=== PATIENT | female | born 1980 | race Caucasian/White ===

== ENCOUNTER → 2019-08-03 | Outpatient (CLI) | payer BC ==
[~2019-08-03] MED LIST: CEPH-350 PO; SULF1TAB24 PO
== END | disposition home or self-care (01) ==
LOC: NPLAB 17:35
PROVIDERS: ATTEND Nurse Practitioner Family
DX: N39.0 Urinary tract infection, site not specified (principal)
CPT/HCPCS: 87086

== ENCOUNTER 2019-12-18 23:08 | Emergency (ER) | payer BC ==
[~2019-12-18] VITALS: Ht 160 cm; Wt 81.6 kg
[2019-12-18] MEDS ORDERED: TORADOL IM STA (23:18)
[2019-12-18 23:22] VITALS: BP 132/83
--- NOTE | 2019-12-18 23:23 | ER.PDOC ---
General Chief Complaint: Requesting Medical Care Stated Complaint: KNEE INJURY Time seen by MD: 23:21 Source: patient Exam Limitations: no limitations History of Present Illness Initial Comments Knee pain S/P twisting it when she stepped into a pothole. Onset: just prior to arrival Where: home Context: twist Severity: moderate Associated Symptoms: unable to bear weight, popping sensation Allergies: Coded Allergies: meperidine (Unverified Allergy, Unknown, 05/26/14) nitrofurantoin (Unverified Allergy, Unknown, 05/26/14) Home Meds Reported Medications Cephalexin (KEFLEX) 500 Mg Capsule, 500 MG PO TID, CAPSULE 05/27/14 Sulfamethoxazole/Trimethoprim (BACTRIM DS TABLET) 1 Each Tablet, 1 EACH PO BID, TABLET 05/27/14 Past Medical History Surgical History: tubal Review of Systems Constitutional: no symptoms reported Respiratory: no symptoms reported Cardiovascular: no symptoms reported Gastrointestinal: no symptoms reported Musculoskeletal: see HPI All Other Systems: Reviewed and Negative Physical Exam General Appearance: Alert, No Apparent Distress Foot: nml inspection, non-tender, nml color/temp, skin intact Ankle: nml inspection, non-tender, nml ROM, no joint swelling, skin intact Knee: tenderness (left), swelling, limited ROM by pain Thigh/Hip: nml inspection Gait: unable to bear weight Neuro/Vasc/Tendon: sensation nml, motor nml, no vascular compromise, tendon function nml Skin: warm/dry Head/ENT: nml inspection, pharynx nml Neck/Back: nml inspection, non-tender Abdomen: non-tender, pelvis stable Results/Orders Results/Orders Orders - STEPHANIE BARKER MD Xr Knee Lt 2v (12/18/19 23:18) Ketorolac Tromethamine (Toradol) (12/18/19 23:18) Ketorolac Tromethamine (Toradol) (12/18/19 23:27) Vital Signs Date Time Temp Pulse Resp B/P (MAP) Pulse Ox O2 Delivery O2 Flow Rate FiO2 12/18/19 23:27 97.7 105 22 132/83 (99) 100 12/18/19 23:27 97.7 105 22 132/83 (99) 100 12/18/19 23:22 97.7 105 22 12/18/19 23:22 97.7 105 22 100 Administered Medications Medications (Trade) Dose Ordered Sig/Tory Route PRN Reason Start Time Stop Time Status Last Admin Dose Admin Ketorolac Tromethamine (Toradol) 60 mg STAT STAT IM 12/18/19 23:18 12/18/19 23:20 DC 12/18/19 23:36 60 MG Progress Progress X rays left knee: Acute mildly displaced intra-articular fracture of the medial tibial plateau extends into the medial tibial metaphysis. Mildly displaced intra-articular fracture of the fibular head. Spoke with Dr. Harden and patient will follow up with him on 12/20/19 at 1pm Departure Time of Disposition: 00:06 Disposition: 01 HOME, SELF-CARE Impression: Primary Impression: Tibia fracture Additional Impression: Fibula fracture Condition: Stable Referrals: YARELY HARTLEY (PCP) PRIMARY CARE PROVIDER Additional Instructions: Tylenol #3 Ibuprofen Ice 3 times a day for 3 days F/U with Dr. Harden tomorrow at 1pm Duration or Time Spent with Pa: 30 mins Problem Qualifiers Primary Impression: Tibia fracture Encounter type: initial encounter Tibia location: proximal Fracture type: closed Fracture morphology: unspecified fracture morphology Laterality: left Qualified Codes: S82.102A - Unspecified fracture of upper end of left tibia, initial encounter for closed fracture Additional Impression: Fibula fracture Encounter type: initial encounter Fibula location: proximal Fracture type: closed Fracture morphology: unspecified fracture morphology Laterality: left Qualified Codes: S82.832A - Other fracture of upper and lower end of left fibula, initial encounter for closed fracture STEPHANIE BARKER MD Dec 18, 2019 23:23
[2019-12-18 23:27] VITALS: BP 132/83
[2019-12-18] MEDS ORDERED: TORADOL ONE (23:27)
--- NOTE | 2019-12-18 23:30 | NUR ---
ABHINAV SCHAFFER IN ROOM WITH PORTABLE AT THIS TIME.
--- NOTE | 2019-12-18 23:45 | DIREP ---
PROCEDURE:XRAY KNEE 2 VWS-LT COMPARISON:None. INDICATIONS:injury, FALL, LEFT KNEE PAIN FINDINGS: BONES:AP, lateral and oblique images of the left knee are provided. Mildly displaced acute transverse intra-articular fracture at the fibular head. There is an acute vertical fracture through the medial tibial plateau with 4 mm fracture displacement. Fracture extends into the tibial metaphysis and originates near the tibial spine and center of the medial tibial plateau. JOINTS:Small joint effusion. SOFT TISSUES:Normal. OTHER:No additional findings. CONCLUSION:Acute mildly displaced intra-articular fracture of the medial tibial plateau extends into the medial tibial metaphysis. Mildly displaced intra-articular fracture of the fibular head. Dictated by: Navjot Canchola M.D. on 12/18/2019 at 11:43 PM
--- NOTE | 2019-12-18 23:52 | NUR ---
KORI COUGHLIN MBA ON PHONE WITH DR. SHEIKH AT THIS TIME.
== END 2019-12-19 00:28 | disposition home or self-care (01) ==
LOC: ER 23:08
DX: S82.832A Other fracture of upper and lower end of left fibula, initial encounter for closed fracture (principal); S82.102A Unspecified fracture of upper end of left tibia, initial encounter for closed fracture; Z79.1 Long term (current) use of non-steroidal anti-inflammatories (NSAID); Z88.1 Allergy status to other antibiotic agents; Z88.5 Allergy status to narcotic agent; X50.9XXA Other and unspecified overexertion or strenuous movements or postures, initial encounter; Y93.89 Activity, other specified; Y92.098 Other place in other non-institutional residence as the place of occurrence of the external cause; Y99.8 Other external cause status
CPT/HCPCS: 29505; 73560; 96372; 99283; J1885; 29105

== ENCOUNTER → 2019-12-22 | Outpatient (CLI) | payer BC ==
[~2019-12-22] MED LIST changes: +ACET-685 PO; +CYCL10TA2 PO; +CYCL5TAB PO; +MULT-235 PO
--- NOTE | 2019-12-22 23:53 | DIREP ---
PROCEDURE:CT LOWER EXTREMITY-LT W/O COMPARISON:[facility], CR, XRAY KNEE 1-2 VWS-LT, 12/18/2019, 11:05 PM. INDICATIONS:LEFT TIBIA FX TECHNIQUE:Axial sections through the left knee were performed with sagittal and coronal reconstructions from source images. No contrast was administered. FINDINGS: BONES:Transverse nondisplaced intra-articular fracture of the tip of the fibular head. Vertical sagittal oblique fracture medial tibial plateau with up to mm fracture distraction is oriented anterior to posterior, lateral to medial. The anterior portion of the medial tibial plateau fracture margins are comminuted. Small fracture lines extend in the coronal plane across the tibial spines into the anterior aspect of the lateral tibial plateau. Small osteophytes at the mid femoral condyle. JOINTS:Large lipohemarthrosis. SOFT TISSUES:Anterior subcutaneous edema. OTHER:Negative. CONCLUSION: 1. Comminuted intra-articular vertical fracture of the medial tibial plateau extends into the anterior margin of the lateral tibial plateau. 2. Fibular head fracture. Dictated by: Navjot Canchola M.D. on 12/22/2019 at 11:47 PM
== END | disposition home or self-care (01) ==
LOC: CT 11:10
PROVIDERS: ATTEND Orthopaedic Surgery
DX: S82.252A Displaced comminuted fracture of shaft of left tibia, initial encounter for closed fracture (principal); S82.832A Other fracture of upper and lower end of left fibula, initial encounter for closed fracture; X58.XXXA Exposure to other specified factors, initial encounter; Y93.89 Activity, other specified; Y92.89 Other specified places as the place of occurrence of the external cause; Y99.8 Other external cause status
CPT/HCPCS: 73700

== ENCOUNTER → 2019-12-24 | Day surgery (SDC) | payer BC ==
--- NOTE | 2019-12-23 14:34 | PCM.EKG ---
[facility] Test Date: 2019-12-23 Test Time: 14:18:29 Pat Name: APPLE WARNER Department: Room: Gender: F [employer] Judge: [place] : [id number] Requested By: JUAN CARLOS SHEIKH Order Number: [id number] Reading MD: Measurements Intervals [place] Rate: 78 P: 74 NM: 161 QRS: 66 QRSD: 92 T: 45 QT: 368 QTc: 420 Interpretive Statements Sinus rhythm No previous ECG available for comparison Please click the below link to view image of tracing.
[2019-12-23 14:49] LABS: BASOPHIL % 0.6 % (0.0-0.2); EOSINOPHIL # 0.3 10^3/uL (0.0-0.2); LYMPHOCYTES # 1.61 10^3/uL1 (1.0-4.8); LYMPHOCYTES % 23.9 % (24.0-44.0); MEAN CORP HGB 28.1 pg (26-34); MONOCYTES # 0.6 10^3/uL (0.3-0.8); MONOCYTES % 9.5 % (5.0-12.0); NEUTROPHIL # 4.2 10^3/uL (1.8-7.7); NEUTROPHILS % 61.7 % (41.0-85.0); PLATELET COUNT 246 10^3/uL (150-400); RED CELL DISTRIBUTION WIDTH 15.2 % (11.5-14.5)
[2019-12-23 15:04] LABS: CALCIUM 8.3 mg/dL (8.4-10.5); CARBON DIOXIDE 28.2 mmol/L (20.0-32)
[~2019-12-24] VITALS: Ht 160 cm; Wt 83.5 kg
[2019-12-24] VITALS (21 sets, daily range): BP systolic 112–171; BP diastolic 70–107
[~2019-12-24] MED LIST changes: +ANCEF ONE; +DECADRON ONE; +DILAUDID ONE; +DIPRIVAN IV ONE; +LACTATED RINGERS 1,000 ML IV SCH; +LACTATED RINGERS 1,000 ML ONE; +LIDOCAINE 2% VIAL ONE; +NEOSTIGMINE ONE; +NORCO 7.5MG PO ONE; +NS 100ML 100 ML IV ONE; +PRECEDEX IV ONE; +REGLAN IV PRN; +SENSORCAINE 0.5% VIAL ONE; +SODIUM CHLORIDE IRR BOTTLE IR ONE; +SUBLIMAZE ONE; +VERSED ONE; +ZEMURON IV ONE; +ZOFRAN ONE
[2019-12-24] MEDS: DILAUDID IV PRN ×2 (12:57→13:15)
--- NOTE | 2019-12-24 12:59 | PRM.OPH ---
OPERATIVE REPORT OPERATIVE REPORT DATE OF SURGERY: 12/24/2019 PREOPERATIVE DIAGNOSIS: Fracture left medial tibial plateau POSTOPERATIVE DIAGNOSIS: Same OPERATIVE PROCEDURE: Open reduction internal fixation left medial tibial plateau using Synthes medial locking plate 4-hole SURGEON: Lito Harden MD ASSITANT: None ANESTHESIA: General endotracheal TOURNIQUET TIME: 45 minutes at 300 mmHg DRAINS: None BLOOD LOSS: 20 mL. DESCRIPTION OF INDICATIONS: 39-year-old female with a displaced medial tibial plateau fracture after falling at home approximately 5 to 7 days ago. DESCRIPTION OF PROCEDURE: Patient was placed on the operating table in the supine position. A general endotracheal anesthetic was induced without difficu lty. Well-padded tourniquet was placed around the left thigh. The patient had the left lower extremity sterilely prepped and draped. The leg was exsanguinated with an Esmarch and the tourniquet was inflated to 300 mmHg. Patient had a anteromedial incision made about the proximal tibia. The incision was taken through the skin and subcutaneous tissue down to the proximal medial tibia. The fracture was exposed anteriorly and posteriorly with blunt dissection. We used a 4-hole Synthes medial tibial buttress plate was placed against a proximal tibia. The plate was initially held into position with a guidewire in the AP and lateral C-arm views showed satisfactory positioning of the hardware. We initially placed a 5.0 compression screw through the middle hole of the plate. A second screw was placed distally down the shaft which was a 4.5 cortical screw. At that point AP and lateral C-arm views showed satisfactory reduction of the fracture and satisfactory hardware position. We then placed 2 locking screws proximally. An oblique locking screw was placed distally and then in the most distal hole a 4.5 cortical screw was placed. The final AP and lateral C-arm views showed satisfactory hardware position and satisfactory reduction of the fracture. The wounds were then copiously irrigated. The subcu was closed with a 2-0 barbed Monocryl for the deep layer and a 3-0 barbed Monocryl for the superficial layer. The skin was closed with surinder. A compressive dressing was applied. The tourniquet was released. The patient was extubated in the operating room and sent to recovery in stable condition. LITO HARDEN MD Dec 24, 2019 12:59
--- NOTE | 2019-12-24 15:00 | DIREP ---
PROCEDURE:XRAY KNEE 2 VWS-LT COMPARISON:[facility], CR, XRAY KNEE 1-2 VWS-LT, 12/18/2019, 11:05 PM. INDICATIONS:POST OP ORIF OF TIBIA PLATEAU FINDINGS: BONES:Interval medial plate and screw fixation of the previously reported medial tibial plateau fracture. Alignment is essentially unchanged from the previous study. There is minimal diastases at the articular surface without significant step-off. Associated minimally displaced fracture of the proximal fibular head. JOINTS:Mild degenerative changes of medial femorotibial compartment with joint space narrowing and subtle osteophyte formation. This is similar to the previous study. SOFT TISSUES:Soft tissue edema and emphysema about the knee would be consistent with recent postoperative state, as indicated by overlying skin surinder. CONCLUSION: 1. Post operative changes of interval open reduction and internal fixation of previously noted medial tibial plateau fracture. Minimally displaced fracture of the proximal fibular head is similar to the previous study. 2. Mild degenerative changes of the medial femoral tibial compartment is similar to the previous study. Dictated by: Yogesh Noriega M.D. On 12/24/2019 at 02:56 PM
== END | disposition home or self-care (01) | DRG 563 ==
LOC: SDC 10:20
PROVIDERS: ATTEND Orthopaedic Surgery
DX: S82.132A Displaced fracture of medial condyle of left tibia, initial encounter for closed fracture (principal); W19.XXXA Unspecified fall, initial encounter; Y93.89 Activity, other specified; Y92.098 Other place in other non-institutional residence as the place of occurrence of the external cause; Y99.8 Other external cause status; Z88.8 Allergy status to other drugs, medicaments and biological substances; Z79.899 Other long term (current) drug therapy; Z82.5 Family history of asthma and other chronic lower respiratory diseases; Z82.49 Family history of ischemic heart disease and other diseases of the circulatory system
CPT/HCPCS: 27535; 36415; 73560; 80053; 84702; 85025; 93005; 97760; A4217; A4649; A6197; C1713 ×6; J0690; J1100 ×2; J1170; J2001 ×2; J2250 ×2; J2405; J2710; J3010 ×2; J3490 ×3; J7050; J7120 ×2; 76000; L1832

== ENCOUNTER → 2020-09-14 | Outpatient (CLI) | payer BC ==
[~2020-09-14] MED LIST changes: -ANCEF ONE; -DECADRON ONE; -DILAUDID ONE; -DIPRIVAN IV ONE; -LACTATED RINGERS 1,000 ML IV SCH; -LACTATED RINGERS 1,000 ML ONE; -LIDOCAINE 2% VIAL ONE; -NEOSTIGMINE ONE; -NORCO 7.5MG PO ONE; -NS 100ML 100 ML IV ONE; -PRECEDEX IV ONE; -REGLAN IV PRN; -SENSORCAINE 0.5% VIAL ONE; -SODIUM CHLORIDE IRR BOTTLE IR ONE; -SUBLIMAZE ONE; -VERSED ONE; -ZEMURON IV ONE; -ZOFRAN ONE
== END | disposition home or self-care (01) ==
LOC: NPLAB 17:52
PROVIDERS: ATTEND Nurse Practitioner Family
DX: Z03.818 Encounter for observation for suspected exposure to other biological agents ruled out (principal)
CPT/HCPCS: U0003

== ENCOUNTER → 2021-09-11 | Outpatient (CLI) | payer BC ==
[~2021-09-11] MED LIST changes: +CYCL10TA19 PO; -CYCL10TA2 PO
== END | disposition home or self-care (01) ==
LOC: NPLAB 09:54
PROVIDERS: ATTEND Nurse Practitioner Family
DX: Z11.52 Encounter for screening for COVID-19 (principal); Z20.822 Contact with and (suspected) exposure to COVID-19
CPT/HCPCS: 87426

== ENCOUNTER → 2021-10-24 | Outpatient (CLI) | payer BC | END | disposition home or self-care (01) | LOC: NPLAB 18:38 | PROVIDERS: ATTEND Nurse Practitioner Family | DX: Z11.52 Encounter for screening for COVID-19 (principal); Z20.822 Contact with and (suspected) exposure to COVID-19 | CPT/HCPCS: 87426 ==

== ENCOUNTER → 2021-11-21 | Outpatient (CLI) | payer BC | END | disposition home or self-care (01) | LOC: NPLAB 12:30 | PROVIDERS: ATTEND Nurse Practitioner Family | DX: U07.1 COVID-19 (principal) | CPT/HCPCS: 87426 ==

== ENCOUNTER → 2022-01-25 | Outpatient (CLI) | payer BC ==
--- NOTE | 2022-01-25 13:20 | DIREP ---
PROCEDURE:Digital Screening Mammogram TECHNIQUE:MLO and CC digital images of each breast are provided. Computer Assisted Detection (CAD) was utilized. COMPARISON:None. INDICATIONS:SCREENING BREAST COMPOSITION:Scattered areas fibroglandular density. FINDINGS:There is an architectural distortion in the left breast upper outer quadrant position. There is a mass with circumscribed margins in the right breast at the lateral position. This finding is thought to be a lymph node, cyst, or fibroadenoma. IMPRESSION:There is an architectural distortion in the left breast, requiring further evaluation. There is a mass in the right breast, requiring further evaluation. RECOMMENDATIONS:Additional imaging evaluation is needed (special mammographic views). Our facility will contact the patient for follow-up imaging. OVERALL FINAL ASSESSMENT:BI-RADS 0 - Incomplete: Need Additional Imaging Evaluation Note: This facility participates in a mammography screening patient reminder system. Dictated by: Austen Garnica MD on 01/25/2022 at 01:10 PM
== END | disposition home or self-care (01) ==
LOC: RAD 10:23
PROVIDERS: ATTEND Nurse Practitioner Women's Health
DX: Z12.31 Encounter for screening mammogram for malignant neoplasm of breast (principal); N63.10 Unspecified lump in the right breast, unspecified quadrant
CPT/HCPCS: 77067